=== PATIENT | male | born 2000 | race Caucasian/White ===

== ENCOUNTER 2024-09-24 11:27 | Emergency (ER) | payer OTHER, SELFPAY ==
--- NOTE | ~2024-09-24 | XR_ITS ---
EXAMINATION: XR knee RT min 4V DATE: 09/24/2024 12:07 INDICATION: Right knee pain post fall onto ice TECHNIQUE: Anteroposterior, 2 oblique and crosstable lateral views of the right knee were obtained COMPARISON: None. FINDINGS: Comminuted intra-articular fracture at the lateral tibial plateau. There is up to 6 mm step-off along the articular cortex on the lateral projection with depression of the posterior aspect of the latera l tibial plateau. Additional 1-2 mm step-off along the fracture plane at the anterior side of the tib ial plateau with lesser degree of depression of the intervening central portion of the lateral tibial plateau. No evident fracture of the patella, distal femur or proximal fibula. There are some seconda ry widening of the joint space at the medial compartment. Joint spaces in the medial and patellofemor al compartments are normal. Large right knee joint effusion. IMPRESSION: 1. Comminuted and depressed fracture of the lateral tibial plateau. Reviewed, dictated and finalized at location A. BINDING MACHINE OPERATOR
--- OUTSIDE RECORDS SUMMARY | 2024-09-24 11:32 | XMS_ITS | Clinical Summary ---
Author Organization [facility] Address [address] [place] [id number] Care Team Providers Care Photoengraving Apprentice Name Role Phone Paty Valiente MD Primary Care Provider [phone] Allergies No known active allergies Medications No known medications Active Problems Problem Noted Date Diagnosed Date Glands swollen 01/31/2022 High serum thyroid stimulating hormone (TSH) 06/2022 BMI 40.0-44.9, adult ([facility]) 6 Overview (11/29/2018): Transitioned From: Obesity Asthma, allergic, mild inter mittent, uncomplicated ([facility]) 12/27/2014 Psoriasis 12/27/2014 Immunizations Name Administration Dates Next Due Dtap (Generic) 03/14/2003, 0,1998,1998,09/1997 Hepatitis B (Generic: Adult) 01/04/1999,05/03/19 98,1998 Hib Vaccine, Prp-Omp 10/07/1999,1998,08/06,1998 Influenza (Generic) 07/06/2008,05/22/2007,2004 MMR (Generic) 03/14/2003,04/09/1999 Polio Ipv (Generic) 03/14/2003,07/08/1999,1998,1998 Varicella Vaccine 03/12/2004 Family History Medical History Relation Comments Diabetes Father Heart Maternal Grandfather Relation Status Comments Father Alive Maternal Grandfather Mother Alive Social History Tobacco Use Types Packs/Day Years Used Date Smoking Tobacco: Never Smokeless Tobacco: Never Tobacco Cessation:Counseling Given: No Alcohol Use Standard Drinks/Week Comments Yes 0 (1 standard drink = 0.6 oz pur e alcohol) PHQ-2 Answer Date Recorded PHQ-2 Score - If the patient scores above 3, please move on to questions 3-9 2 12/11/2021 Sex and Gender Information Value Date Recorded Sex Assigned at Not on file Legal Sex Male 9:36 PM CDT Gender Identity Not on file Sexual Orientation Not on file Last Filed Vital Signs Vital Sign Reading Time Taken Comments Blood Pressure 139/86 03/30/2023 8:50 AM CDT Pulse 81 10/08/2022 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 Temperature 36.3 C (97.3 F) 10/08/2022 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 Respiratory Rate 20 10/08/2022 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 Oxygen Saturation 96% 10/08/2022 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 Inhaled Oxygen Concentration - - Weight 135.3 kg (298 lb 3.2 oz) 10/08/2022 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 Height 182.9 cm (6') 10/08/2022 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 Body Mass Index 40.44 10/08/2022 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 Plan of Treatment Health Maintenance Due Date Last Done Comments Pneumococcal Vaccine: Pediatrics (0 to 5 Years) and At-Risk Patients (6 to 64 Years) (1 of 2 - PCV) 2004 DTaP, Tdap and Td Vaccines (6 - Tdap) 2009 03/14/2003, 10/07/1999, 1998, Additional history exists PHQ-2 (Physician Hopi) 2010 HPV Vaccines (1 - Male 3-dose series) 2013 Hepatitis C 2016 Annual Physical 03/30/2024 03/30/2023, 11/30/2018 COVID-19 Vaccine ( - season) 2024 01/30/2021, 01/02/2021 Influenza Adult (#1) 2024 07/06/2008, 05/22/2007, 05/28/2005 PHQ-2 (Physician Hopi) 08/03/2024 Hepatitis B Vaccines Completed 01/04/1999, 1998, 1998 Meningococcal B Vaccine Aged Out No l onger eligible based on patient's age to complete this topic Meningococcal Vaccine Aged Out No valentin dereck eligible based on patient's age to complete this topic RSV Immunizations Under 20 Months Aged Out No longer eligible based on patient's age to complete this topic Insurance [place] [address] [place] [address] Care Teams Photoengraving Apprentice Relationship Specialty [place] [id number] [address] [place] [id number] PCP - General [facility]ILY [facility]ACTICE 12/11/21
--- NOTE | 2024-09-24 11:39 | ED.LOWEXIN ---
HPI - Extremity Injury (Lower) General Chief Complaint: Extremity Injury, Lower Stated Complaint: fall/knee injury Time Seen by Provider: 09/24/24 11:49 Source: patient Mode of arrival: ambulatory Limitations: no limitations History of Present Illness HPI Narrative: 24 y/o male presented for c/o right knee pain and swelling following an injury last night. States he slipped in his driveway and twisted the knee, landing with the right knee on concrete. Has been unable to tolerate weight bearing since the injury. Rates pain 7/10 when attempting to ambulate. Reports inside the knee feels tender with any touch and States the knee feels weak. Denies numbness or tingling to the lower extremity. Has taken ibuprofen today. Related Data Home Medications ?Medication ?Instructions ?Recorded ?Confirmed ?Last Taken ?Type No Home Medications 09/24/24 09/24/24 Unknown History Allergies Allergy/AdvReac Type Severity Reaction Status Date / Time No Known Allergies Allergy Verified 09/24/24 11:40 Review of Systems Review of Systems: CONSTITUTIONAL: Denies body aches, fever, chills EYES: Denies visual changes ENT: Denies rhinorrhea, congestion CARDIOVASCULAR: Denies chest pain, palpitations, or edema. RESPIRATORY: Denies cough or dyspnea. GASTROINTESTINAL: Denies abdominal pain, nausea, vomiting, or diarrhea. SKIN: Denies rash, itching, or wounds. MUSCULOSKELETAL: reports right knee pain and swelling NEUROLOGIC: Denies headache, numbness, tingling, or weakness. PSYCH: Denies depression or anxiety. All systems reviewed & are unremarkable except as noted in HPI and below PMFSH Comments At time of signature, I have reviewed and agree with nursing past medical, surgical, social and family history unless otherwise noted. Please see nursing chart for further information. There is no relevant family history pertinent to the presenting complaint Exam Narrative: GENERAL: Appears in some pain, in no acute distress. CHEST: Speaks in full sentences. No respiratory distress. HEART: Regular rate and rhythm. Normal and equal peripheral pulses. EXTREMITIES: Patient is unable to bear weight or ambulate due to right knee pain. Mild erythema, warmth and swelling noted to right knee. Patient is unable to tolerate full flexion, extension, internal or external rotation due to pain. Reports inside the knee feels tender with any palpation. Tenderness over the infrapatellar area. No quadriceps tenderness. Distal motor and neurovascular status intact. No open wounds. SKIN: Warm, dry NEURO: Alert and oriented x3. PSYCH: Normal mood and affect Course Course Emergency Course: Patient is aware of diagnosis, understands and agrees to treatment plan. Anticipatory guidance given. Patient agrees to follow-up as directed and is aware of reasons to seek care at the emergency department. Portions of this record may have been created with voice recognition software Level of Care: Express Care Visit Vital Signs Vital signs: Vital Signs Temperature 96.8 F L 09/24/24 11:45 Pulse Rate 78 09/24/24 11:45 Respiratory Rate 18 09/24/24 11:45 Blood Pressure 165/86 H 09/24/24 11:45 Pulse Oximetry 97 09/24/24 11:45 Oxygen Delivery Room Air 09/24/24 11:45 Temperature 96.8 F L 09/24/24 11:45 Pulse Rate 78 09/24/24 11:45 Respiratory Rate 18 09/24/24 11:45 Blood Pressure 165/86 H 09/24/24 11:45 Pulse Oximetry 97 09/24/24 11:45 Oxygen Delivery Room Air 09/24/24 11:45 Reviewed Transfer Transfer rationale: Pt is agreeable to transfer. Requests transfer to [facility] via private vehicle; declined ambulance. Risks of transportation reviewed with pt including injury, worsening of condition and . v/u. Mother will be driving pt; Report called to hospital, spoke with Dr Edward in ER, accepting physician. Pt is in stable condition at time of transfer. Advised to remain NPO and go directly to the hospital. MDM - Extremity Injury (Lower) MDM Narrative Medical decision making narrative: Pt presented after a fall landing with the right knee on concrete. Discussed physical exam findings and xray. Ice pack applied to knee. Spoke with director organizational ortho Dr Shah, who advised ST transfer. Pt requests [facility]. Knee immobilizer placed prior to transfer. Differential Diagnosis Differential diagnosis: Likely other (osteoarthritis, patella dislocation, patellar tendonitis, tendon rupture, gout, bakers cyst, septic bursitis, dvt, tibial plateau fracture) Imaging Data Radiologist's impression: Patient: Dinesh Maurice : 2000 MR#: [id number] Age: 24 Acct:[id number] Loc: [facility] ADM Date: 09/24/24Attending Dr: Ordering Physician: Nena Chao APRN Date of Service: 09/24/24 Procedure(s): XR knee RT min 4V Accession Number(s): [id number] cc: Nena Chao APRN; Madan Escudero~ EXAMINATION: XR knee RT min 4V DATE: 09/24/2024 12:07 INDICATION: Right knee pain post fall onto ice TECHNIQUE: Anteroposterior, 2 oblique and crosstable lateral views of the right knee were obtained COMPARISON: None. FINDINGS: Comminuted intra-articular fracture at the lateral tibial plateau. There is up to 6 mm step-off along the articular cortex on the lateral projection with depression of the posterior aspect of the lateral tibial plateau. Additional 1-2 mm step-off along the fracture plane at the anterior side of the tibial plateau with lesser degree of depression of the intervening central portion of the lateral tibial plateau. No evident fracture of the patella, distal femur or proximal fibula. There are some secondary widening of the joint space at the medial compartment. Joint spaces in the medial and patellofemoral compartments are normal. Large right knee joint effusion. IMPRESSION: 1. Comminuted and depressed fracture of the lateral tibial plateau. Discharge Plan Discharge Clinical Impression: Fracture of tibial plateau Qualifiers: Encounter type: initial encounter Fracture type: closed Laterality: right Qualified Code(s): S82.141A - Displaced bicondylar fracture of right tibia, initial encounter for closed fracture Patient Disposition: Acute Care Hospital Condition: Stable Patient Language: Amharic Prescriptions: No Action No Home Medications Follow-up/Referrals: Madan Escudero [Other] Time of Disposition: 13:08
[2024-09-24 11:45] VITALS: BP 165/86; PULSE 78; RESP 18; TEMP 36; O2SAT 97
== END 2024-09-24 13:15 | disposition short-term general hospital (02) ==
PROVIDERS: Emergency Provider Nurse Practitioner Family
DX: S82.141A Displaced bicondylar fracture of right tibia, initial encounter for closed fracture (principal); W01.0XXA Fall on same level from slipping, tripping and stumbling without subsequent striking against object, initial encounter
CPT/HCPCS: 73564; 99214; G0463; L1830